=== PATIENT | male | born 1990 | race African-American/Black ===

== ENCOUNTER 2021-04-23 21:32 | Emergency (ER) | payer OTHER ==
[~2021-04-23] VITALS: Ht 193 cm; Wt 99.0 kg
[2021-04-23 21:36] VITALS: BP 147/89
[2021-04-23] MEDS ORDERED: IBUPROFEN 600MG TABLET PO STA (22:07)
[2021-04-23] MEDS ORDERED: IBUP-2029 MT (23:02)
== END 2021-04-23 23:28 | disposition home or self-care (01) ==
LOC: ER 21:32
DX: R07.89 Other chest pain (principal); F90.9 Attention-deficit hyperactivity disorder, unspecified type
CPT/HCPCS: 71045; 93005; 99283